=== PATIENT | female | born 1965 | race Caucasian/White ===

== ENCOUNTER 2022-11-03 19:21 | Emergency (ER) | payer MEDICAID ==
[~2022-11-03] VITALS: Ht 172.7 cm; Wt 65.0 kg
[~2022-11-03 19:21] MED LIST: ASA400T PO; LOPE-74 PO; NAPR-56 PO; NO HOME MEDS; ONDA8TAB6 PO
[2022-11-03] MEDS ORDERED: metoprolol succinate 25mg (24-HOUR) SR. Tablet PO ONE (19:55)
[2022-11-03] MEDS ORDERED: LORazepam 1 MG tablet PO ONE (19:55)
[2022-11-03] MEDS ORDERED: METO50TA7 PO (20:09)
[2022-11-03] MEDS ORDERED: CHLO25CA10 PO ×3 (20:09)
[2022-11-03 20:45] VITALS: BP 164/111
== END 2022-11-03 20:52 ==
LOC: ER 19:21
DX: H10.9 Unspecified conjunctivitis (principal); I10 Essential (primary) hypertension; F31.9 Bipolar disorder, unspecified
CPT/HCPCS: 99283

== ENCOUNTER 2025-05-26 12:45 | Emergency (ER) | payer MEDICAID ==
[~2025-05-26] VITALS: Ht 170.2 cm; Wt 82.0 kg
[~2025-05-26 12:45] MED LIST changes: +CHLO25CA10 PO
--- NOTE | 2025-05-26 13:04 | Physician Documentation ---
History of Present Illness General Chief Complaint: Abdominal Pain Stated Complaint: ABDOMINAL PAIN Time Seen by MD: 13:04 OK to notify your PCP?: No Primary Medical Doctor: none Source: patient, RN notes reviewed Mode of Arrival: EMS, Stretcher Exam Limitations: no limitations History of Present Illness Initial Comments 60 old female, who relapsed on alcohol one week ago and last drank 1 hour ago, presents complaining of crampy lower abdominal pain beginning three weeks ago. Pain is rated 5/10 at this time. She also reports urinary urgency for the last three weeks but denies any pain with urination. Finally she notes some subjective fevers and chills. Prior to drinking alcohol one week ago, patient was sober for three years. She denies any vomiting. Medication Reconciliation Allergies: Coded Allergies: No Known Allergies (Unverified , 05/26/25) Scheduled Amox Tr/Potassium Clavulanate 875/125 MG (Augmentin 875/125 MG), 1 TAB PO BID Chlordiazepoxide HCl (Chlordiazepoxide HCl), 2 CAP PO Q2H Chlordiazepoxide Hcl (Librium), 25 MG PO DIRECTED Mesalamine (Asacol), 3 TAB PO TID Naproxen (Naproxen), 500 MG PO Q12H Ondansetron HCl (Zofran), 8 MG PO Q8H PRN N/V Scheduled PRN Chlordiazepoxide Hcl (Librium), 50 MG PO Q6H PRN for agitation Loperamide Hcl (Imodium A-D), 2 MG PO Q12H FOR DIARRHEA PRN ONDANSETRON ODT 4mg tablet (Ondansetron Odt), 1 TABLET PO Q6H PRN for nausea/vomiting Miscellaneous Medications Home Med List (No Home Medications), (Reported) Past Medical History Past Medical History: Hypertension, *GI/HEPATOBILIARY*, Bipolar Past Surgical History: no surgical history Alcohol Use: Alcoholic Drug Use: none Lives with: Spouse Lives In: Home Occupation: employed Review of Systems All Other Systems at this time: Reviewed and Negative ROS lower abdominal pain as well as other positive symptoms as stated above in the HPI, otherwise all systems are reviewed and negative. Physical Exam Physical Exam Vital Signs: RN Vital Signs have been reviewed: Yes, Heart Rate: 99, Respiratory Rate: 22, BP: 112/69, Pulse Oximetry: 93, Weight: 82.000 Oxygen Flow Rate: 0 Pulse Oximetry Reflects: adequate oxygenation Physical Exam VITALS: Reviewed and as above. GENERAL: Alert, no apparent distress. HEENT: Normocephalic, atraumatic, PERRL, EOMI, dry mucosa RESPIRATORY: Lungs clear, normal breath sounds, no respiratory distress. CHEST: No accessory muscle use, no retractions CV: Regular rate, rhythm, no edema, no murmur, No: JVD GI: Slight suprapubic tenderness. Soft, bowels sounds present, no rebound, guarding, or rigidity MUSCULOSKELETAL: No deformities, no edema SKIN: Warm and dry, no rash NEURO: Oriented x4, No motor or sensory deficit PSYCH: Normal mood and affect, no agitation Progress Results/Orders Reviewed/noted all lab results: Yes Results/Orders Medications Received in ER Medications (Trade) Dose Ordered Sig/Briseyda Route PRN Reason Start Time Stop Time Status Last Admin Dose Admin (Toradol injection) 15 mg ONCE ONCE IM 05/26/25 15:35 05/26/25 15:36 DC 05/26/25 16:06 15 MG (Augmentin 875-125mg tablet) 1 tab ONCE ONCE PO 05/26/25 16:20 05/26/25 16:21 DC 05/26/25 16:56 1 TAB Vital Signs 05/26/25 05/26/25 05/26/25 05/26/25 12:50 12:59 13:00 13:58 Pulse 98 99 103 Resp 20 15 22 17 B/P (MAP) 124/94 112/69 (83) 111/66 (81) Pulse Ox 96 93 92 O2 Flow Rate 0 0 0 05/26/25 16:06 Resp 20 Laboratory Tests Test 05/26/25 13:11 05/26/25 13:50 White Blood Count 8.0 Red Blood Count 4.63 Hemoglobin 13.8 Hematocrit 40.5 Mean Corpuscular Volume 87.4 Mean Corpuscular Hemoglobin 29.8 Mean Corpuscular Hemoglobin Concent 34.1 Red Cell Distribution Width 13.2 Platelet Count 359 Mean Platelet Volume 7.3 L Neutrophils (%) (Auto) 65.7 Lymphocytes (%) (Auto) 28.5 Monocytes (%) (Auto) 4.2 Eosinophils (%) (Auto) 1.0 Basophils (%) (Auto) 0.6 Neutrophils # (Auto) 5.3 Lymphocytes # (Auto) 2.3 Monocytes # (Auto) 0.3 Eosinophils # (Auto) 0.1 Basophils # (Auto) 0.0 CBC Comment Sodium Level 138 Potassium Level 3.4 L Chloride Level 97 L Carbon Dioxide Level 22.8 L Anion Gap 18 H Blood Urea Nitrogen 15 Creatinine 0.68 Estimated GFR/1.73 m2 89 BUN/Creatinine Ratio 22.1 H Glucose Level 139 H Calcium Level 8.5 Total Bilirubin 0.4 Aspartate Amino Transf (AST/SGOT) 41 H Alanine Aminotransferase (ALT/SGPT) 30 Alkaline Phosphatase 124 H Total Protein 7.5 Albumin 3.7 Globulin 3.8 Albumin/Globulin Ratio 1.0 L Lipase 34 Procalcitonin < 0.05 Chemistry Comments Urine Specimen Description Cln catch midstream Urine Color Yellow Urine Clarity Cloudy Urine pH 6.5 Urine Specific [place] 1.020 Urine Protein 30 H Urine Glucose (UA) Negative Urine Ketones 15 H Urine Occult Blood Small Urine Nitrite Negative Urine Bilirubin Negative Urine Urobilinogen 0.2 Urine Leukocyte Esterase Trace H Urine RBC 10-20 Urine WBC 10-20 H Urine Squamous Epithelial Cells Many Urine Transitional Epithelial Cells Moderate Urine Amorphous Phosphates 3+ Urine Bacteria 4+ Urine Hyaline Casts Urine Mucus Few Urine Culture Indicated Rejected for culture Volume Urine Centrifuged 10 ml Urine HCG, Qualitative Negative Urine Comment EKG/XRAY/CT/US/VASC/MRI CT : Interpreted By: radiologist CT: abdomen/pelvis With Contrast?: No Impression Indication: abd pain Technique: CT axial images of the abdomen and pelvis are obtained without intravenous contrast. Coronal and sagittal reformats were obtained. Radiation Dose Information: CTDI volume is 19 mGy. Dose-length product is 988 mGy*cm Comparison: None FINDINGS: Limited evaluation without contrast. Lung bases demonstrate no pleural effusion. Adrenal glands, spleen, pancreas unremarkable in shape. Hepatic steatosis. Cholelithiasis. Kidneys demonstrate no hydronephrosis / nephrolithiasis. Small hiatal hernia. Distal esophageal wall thickening. Small bowel loops are normal in caliber. Colonic diverticular disease. Bowel wall thickening of the descending colon with surrounding stranding. There is less pronounced bowel wall thickening of the ascending colon, transverse colon. Normal appendix. Abdominal aortic atherosclerotic disease. Bladder distended. No free pelvic fluid. No inguinal lymphadenopathy. [id number] bilateral sacroiliac degenerative joint disease. L5 pars defects. 5 mm anterolisthesis L5 on S1. Thoracolumbar levocurvature. IMPRESSION: Colonic diverticular disease. Bowel wall thickening with surrounding stranding of the descending colon may represent diverticulitis, colitis. There is less pronounced bowel wall thickening of the ascending and transverse colon which could also represent sequela of colitis, inflammatory bowel disease. Hepatic steatosis. Small hiatal hernia. Distal esophageal wall thickening. Correlate for esophagitis and other etiologies. Recommend GI consultation. Cholelithiasis. Atherosclerotic disease. Other findings as described Reviewed by myself. Medical Decision Making Additional info obtained from: old records (seen in 2022 for general medical exam) Departure Time of Disposition: 17:22 Disposition: HOME / SELF CARE / HOMELESS Impression: Primary Impression: UTI (urinary tract infection) Qualified Codes: N39.0 - Urinary tract infection, site not specified Additional Impression: Colitis Condition: Stable Discharge Instructions: Colitis, Urinary Tract Infection, Adult, [id number] Additional Instructions: Take full course of antibiotics as prescribed. Take Zofran as needed for nausea. Follow up with your regular doctor. Return to the ER for worsening pain, fever, uncontrolled vomiting, or other concerns. Prescriptions ONDANSETRON ODT 4mg tablet (ONDANSETRON ODT) 4 Mg Tab.rapdis 1 TABLET PO Q6H PRN for nausea/vomiting, #12 TABLET Prov: QI TRAN MD 05/26/25 Amox Tr/Potassium Clavulanate 875/125 MG (Augmentin 875/125 MG) 875 Mg-125 Mg Tablet 1 TAB PO BID, #20 TAB Prov: QI TRAN MD 05/26/25 Education Educated: Patient Educated regarding: diagnosis, treatment, need for follow up Signature Scribe Signature: Scribed for Qi Tran MD by Maru Gilmore . 05/26/25 13:35 QI TRAN MD May 26, 2025 13:04 MARU GUERRA May 26, 2025 13:40
[2025-05-26 13:27] LABS: MEAN PLATELET VOLUME 7.3 FL (7.4-10.4); RED CELL DISTRIBUTION WIDTH 13.2 % (11.5-14.5)
[2025-05-26 13:42] LABS: CREATININE 0.68 MG/DL (0.40-0.90); TOTAL CARBON DIOXIDE 22.8 MMOL/L (24-32); eCRCL 88 ML/MIN; eGFR 89 ML/MIN
[2025-05-26 14:44] LABS: LEUKOCYTE ESTERASE ,URINE TRACE (Neg); NITRITES, URINE NEGATIVE (Neg); OCCULT BLOOD,URINE SMALL (Neg); URINE HCG NEGATIVE (NEG)
[2025-05-26 14:50] LABS: SQUAMOUS EPITHELIAL CELL,UR MANY /LPF (FEW); UA COLLECTION TYPE CLN CATCH MIDSTREAM
[2025-05-26 14:51] LABS: MUCUS STRANDS FEW /LPF (Neg)
[2025-05-26 14:53] LABS: AMORPHOUS PHOSPHATES 3+
[2025-05-26] MEDS: ketorolac trometh 15mg/ml vial 15 MG/ML ML IM ONE (16:06)
--- NOTE | 2025-05-26 16:49 | RADIOLOGY REPORT ---
Indication: abd pain Technique: CT axial images of the abdomen and pelvis are obtained without intravenous contrast. Kendrick nal and sagittal reformats were obtained. Radiation Dose Information: CTDI volume is 19 mGy. Dose-length product is 988 mGy*cm Comparison: None FINDINGS: Limited evaluation without contrast. Lung bases demonstrate no pleural effusion. Adrenal glands, spleen, pancreas unremarkable in shape. Hepatic steatosis. Cholelithiasis. Kidneys demonstrate no hydronephrosis / nephrolithiasis. Small hiatal hernia. Distal esophageal wall thickening. Small bowel loops are normal in caliber. Colonic diverticular disease. Bowel wall thickening of the descending colon with surrounding strandin g. There is less pronounced bowel wall thickening of the ascending colon, transverse colon. Normal appendix. Abdominal aortic atherosclerotic disease. Bladder distended. No free pelvic fluid. No inguinal lympha denopathy. [id number] bilateral sacroiliac degenerative joint disease. L5 pars defects. 5 mm anterolisthes is L5 on S1. Thoracolumbar levocurvature. IMPRESSION: Colonic diverticular disease. Bowel wall thickening with surrounding stranding of the descending col on may represent diverticulitis, colitis. There is less pronounced bowel wall thickening of the ascending and transverse colon which could also represent sequela of colitis, inflammatory bowel disease. Hepatic steatosis. Small hiatal hernia. Distal esophageal wall thickening. Correlate for esophagitis and other etiologies. Recommend GI con sultation. Cholelithiasis. Atherosclerotic disease. Other findings as described
[2025-05-26] MEDS: amox tr/potassium clavulanate 875/125mg TAB PO ONE ×2 (16:56→17:30)
[2025-05-26] MEDS ORDERED: ONDA-243 PO (17:22)
[2025-05-26] MEDS ORDERED: CHLO25CA10 PO (17:22)
[2025-05-26] MEDS ORDERED: AMOX-580 PO (17:22)
[2025-05-26] MEDS: ondansetron 4mg rapidly disintigrating tab PO ONE (17:30)
[2025-05-26 17:52] VITALS: BP 141/89; PULSE 102; RESP 18; O2SAT 96
== END 2025-05-26 17:59 | disposition home or self-care (01) ==
LOC: ER 12:46
DX: N39.0 Urinary tract infection, site not specified (principal); K52.9 Noninfective gastroenteritis and colitis, unspecified; F31.9 Bipolar disorder, unspecified; I10 Essential (primary) hypertension
CPT/HCPCS: 36415; 74176; 80053; 81001; 81025; 83690; 84145; 85025; 96372; 99285; J1885

== ENCOUNTER 2025-05-30 14:35 | Inpatient (IN) | payer MEDICAID ==
[~2025-05-30] VITALS: Ht 170.2 cm; Wt 82.0 kg
[~2025-05-30 14:35] MED LIST changes: +AMOX-580 PO; +ONDA-243 PO
[2025-05-30 15:02] LABS: MEAN PLATELET VOLUME 7.2 FL (7.4-10.4); RED CELL DISTRIBUTION WIDTH 13.2 % (11.5-14.5)
[2025-05-30 15:14] LABS: CREATININE 0.65 MG/DL (0.40-0.90); ETHANOL 288 MG/DL (<10); TOTAL CARBON DIOXIDE 28.4 MMOL/L (24-32); eCRCL 92 ML/MIN; eGFR > 90 ML/MIN
--- NOTE | 2025-05-30 15:31 | RADIOLOGY REPORT ---
DI HIP UNILATERAL 2 VIEWS, INDICATION: RIGHT HIP PAIN TECHNICAL DATA: Frontal and frog lateral views were obtained of the right hip. COMPARISON: None FINDINGS: The left hip is normally located. The left hip joint is normally maintained with no marginal osteophy eva. No left hip fracture is identified. The left sacroiliac joint appears normal. Dense material pr ojects over the right hemipelvis and is probable fecal material. IMPRESSION: Dense material projects over the right hemipelvis and is probable fecal material.
--- NOTE | 2025-05-30 15:36 | Physician Documentation ---
History of Present Illness General Chief Complaint: Mechanical Fall Stated Complaint: FALL Time Seen by MD: 15:15 OK to notify your PCP?: No Primary Medical Doctor: none Source: patient, EMS, RN notes reviewed Mode of Arrival: EMS Exam Limitations: no limitations History of Present Illness Initial Comments 60-year-old female, with recent relapse on alcohol, returns to the ED via EMS with primarily complains of right hip pain beginning two days ago after she fell. Patient reports she slipped at the time, falling onto her right hip. She also struck her head but did not lose consciousness. Pain improves when lying on her right side. She also complains of generalized abdominal pain and was seen by myself in this ED four days ago with the same complaint. She had labs , urinalysis, and CT of the abdomen/pelvis. She was discharged with prescriptions for Librium, Zofran, and Augmentin for urinary tract infection and colitis, and alcohol withdrawal. Patient reports she was unable to fill the prescription for antibiotics and abdominal pain has continued worsened. Medication Reconciliation Allergies: Coded Allergies: No Known Allergies (Unverified , 05/30/25) Miscellaneous Medications Home Med List (No Home Medications), (Reported) Discontinued Medications Amox Tr/Potassium Clavulanate 875/125 MG (Augmentin 875/125 MG), 1 TAB PO BID Discontinued Reason: patient no longer taking Chlordiazepoxide HCl (Chlordiazepoxide HCl), 2 CAP PO Q2H Discontinued Reason: patient no longer taking Chlordiazepoxide Hcl (Librium), 25 MG PO DIRECTED Discontinued Reason: patient no longer taking Chlordiazepoxide Hcl (Librium), 50 MG PO Q6H PRN for agitation Discontinued Reason: patient no longer taking Chlordiazepoxide Hcl (Librium), 25 MG PO UD PRN for for anxiety/agitation Discontinued Reason: patient no longer taking Home Med List (No Home Medications), (Reported) Discontinued Reason: patient no longer taking Loperamide Hcl (Imodium A-D), 2 MG PO Q12H FOR DIARRHEA PRN Discontinued Reason: patient no longer taking Mesalamine (Asacol), 3 TAB PO TID Discontinued Reason: patient no longer taking Naproxen (Naproxen), 500 MG PO Q12H Discontinued Reason: patient no longer taking ONDANSETRON ODT 4mg tablet (Ondansetron Odt), 1 TABLET PO Q6H PRN for naus ea/vomiting Discontinued Reason: patient no longer taking Ondansetron HCl (Zofran), 8 MG PO Q8H PRN N/V Discontinued Reason: patient no longer taking Past Medical History Past Medical History: Hypertension, *GI/HEPATOBILIARY*, Bipolar Past Surgical History: no surgical history Alcohol Use: Alcoholic Drug Use: none Lives with: Spouse Lives In: Home Occupation: employed Review of Systems All Other Systems at this time: Reviewed and Negative ROS As stated above in the HPI, otherwise all systems are reviewed and negative. Physical Exam Physical Exam Vital Signs: RN Vital Signs have been reviewed: Yes, Heart Rate: 87, Respiratory Rate: 15, BP: 114/91, Pulse Oximetry: 97, Weight: 82.000 Oxygen Flow Rate: 0 Pulse Oximetry Reflects: adequate oxygenation Physical Exam VITALS: Reviewed and as above. GENERAL: Alert, no apparent distress. HEENT: Normocephalic, atraumatic, PERRL, EOMI, dry mucosa RESPIRATORY: Lungs clear, normal breath sounds, no respiratory distress. CHEST: No accessory muscle use, no retractions CV: Regular rate, rhythm, no edema, no murmur, No: JVD GI: Soft, non-tender, bowels sounds present, no rebound, guarding, or rigidity MUSCULOSKELETAL No deformities, no edema SKIN: Warm and dry, no rash NEURO: Oriented x4, No motor or sensory deficit PSYCH: Normal mood and affect, no agitation Progress Progress Note 1800: Hospitalist paged. Results/Orders Reviewed/noted all lab results: Yes Results/Orders Orders - QI TRAN MD Hip Unilateral 2 Views (05/30/25 15:06) Completed Orders - QI TRAN MD Cbc/Diff (05/30/25 14:50) Lipase (05/30/25 14:50) Ethanol (05/30/25 14:50) CK (05/30/25 14:50) BMP (05/30/25 14:50) Hip Unilateral 2 Views (05/30/25 15:06) Potassium Cl Sr Tablet (K-Dur Tablet) (05/30/25 15:37) Ondansetron Inj. (Zofran 4mg/2ml Vial) (05/30/25 16:15) Potassium Cl Sr Tablet (K-Dur Tablet) (05/30/25 16:20) Potassium Cl Sr Tablet (K-Dur Tablet) (05/30/25 16:20) Magnesium Cl Er Tablet (Slow-Mag Tablet) (05/30/25 16:20) Magnesium Sulf-Water 2g/50ml (Magnesium (05/30/25 16:20) Magnesium Sulf-Water 4g/100ml (Magnesium (05/30/25 16:20) Potassium Cl 40meq/1/2ns 520ml ([place] (05/30/25 16:20) K And/Or Mag Replacement (K And/Or Mag R (05/30/25 20:00) MG (05/30/25 14:52) Ceftriaxone 2gm/D5w 50ml Bag (Rocephin 2 (05/30/25 16:35) Normal Saline 1000ml (0.9% Sodium Chlori (05/30/25 16:35) Metoclopramide Inj (Reglan Inj) (05/30/25 17:05) Diphenhydramine Inj (Benadryl Inj.) (05/30/25 17:05) Lorazepam Tablet (Ativan Tablet) (05/30/25 18:05) Vital Signs 05/30/25 05/30/25 05/30/25 05/30/25 14:39 15:35 16:07 18:17 Temp 97.8 97.8 Pulse 87 82 96 Resp 15 18 20 18 B/P (MAP) 114/91 143/93 (110) 160/80 (106) Pulse Ox 97 95 99 O2 Flow Rate 0 0 0 05/30/25 05/30/25 05/30/25 05/30/25 18:36 18:41 19:17 20:43 Pulse 85 93 Resp 18 18 18 18 B/P (MAP) 139/100 (113) 140/69 (92) Pulse Ox 97 96 Laboratory Tests Test 05/30/25 14:52 05/30/25 18:57 05/30/25 21:02 White Blood Count 7.4 Red Blood Count 4.58 Hemoglobin 13.6 Hematocrit 40.2 Mean Corpuscular Volume 87.8 Mean Corpuscular Hemoglobin 29.8 Mean Corpuscular Hemoglobin Concent 33.9 Red Cell Distribution Width 13.2 Platelet Count 255 Mean Platelet Volume 7.2 L Neutrophils (%) (Auto) 75.0 Lymphocytes (%) (Auto) 19.7 L Monocytes (%) (Auto) 4.1 Eosinophils (%) (Auto) 0.5 Basophils (%) (Auto) 0.7 Neutrophils # (Auto) 5.6 Lymphocytes # (Auto) 1.5 Monocytes # (Auto) 0.3 Eosinophils # (Auto) 0.0 Basophils # (Auto) 0.1 CBC Comment Sodium Level 139 Potassium Level 2.9 *L 3.5 Chloride Level 97 L Carbon Dioxide Level 28.4 Anion Gap 14 Blood Urea Nitrogen 7 Creatinine 0.65 Estimated GFR/1.73 m2 > 90 BUN/Creatinine Ratio 10.8 Glucose Level 151 H Calcium Level 8.4 L Magnesium Level 1.9 Total Creatine Kinase 170 Albumin 3.5 Lipase 29 Chemistry Comments Ethyl Alcohol Level 288 H Urine Specimen Description Cln catch midstream Urine Color Yellow Urine Clarity Clear Urine pH 7.0 Urine Specific [place] 1.010 Urine Protein Negative Urine Glucose (UA) Negative Urine Ketones Negative Urine Occult Blood Negative Urine Nitrite Negative Urine Bilirubin Negative Urine Urobilinogen 0.2 Urine Leukocyte Esterase Negative Urine Culture Indicated Not ind Volume Urine Centrifuged 10 ml Urine Comment Urine Opiates Screen Negative Urine Methadone Screen Negative Urine Fentanyl Screen Negative Urine Barbiturates Screen Negative Urine Phencyclidine Screen Negative Urine Amphetamines Screen Negative Urine Benzodiazepines Screen Negative Urine Cocaine Screen Negative Urine Cannabinoids Screen Negative Drug Screen Comment EKG/XRAY/CT/US/VASC/MRI Bone/Soft Tissue X-Ray (Ext.) : Additional Comment Addendum: 2 ADDENDUM # 1 The images are of the right hip. ORIGINAL REPORT DI HIP UNILATERAL 2 VIEWS, INDICATION: RIGHT HIP PAIN TECHNICAL DATA: Frontal and frog lateral views were obtained of the right hip. COMPARISON: None FINDINGS: The right hip is normally located. The right hip joint is normally maintained with no marginal osteophytes. No right hip fracture is identified. The right sacroiliac joint appears normal. Dense material projects over the right hemipelvis and is probable fecal material. IMPRESSION: Dense material projects over the right hemipelvis and is probable fecal material. Medical Decision Making Findings Facility Status: ED Holds, [facility] process The plan was discussed with the patient, who demonstrates clear understanding of the plan and is in agreement with the plan unless otherwise noted in the chart. All questions have been answered, all concerns were addressed unless otherwise documented. I was available throughout their ED stay for frequent reassessment and questions. Differential Diagnoses (considered and possible or likely): [With respect to abdominal pain, less likely represents ongoing UTI, otherwise Differential diagnosis considered includes acute appendicitis, acute cholecystitis, pancreatitis, gastritis, PUD, diverticulitis, mesenteric ischemia, abdominal ao rtic aneurysm, bowel obstruction, enteritis, colitis, fecal impaction, volvulus, IBS, inflammatory bowel disease, specific food intolerance, peritonitis, perforated viscous, malignancy, UTI, abscess, and abdominal pain NOS. Pelvic source of pain was also considered including endometritis, dysmenorrhea, ovarian cyst, ovarian torsion, PID, TOA, cervicitis, vaginitis, or uterine fibroid. History, physical exam, and workup exclude many of the more serious causes listed above. Additionally, have considerably dehydration, electrolyte derangement, hypoglycemia, alcohol withdrawal, alcohol intoxication With respect to fall, differential includes but not limited to right hip fracture versus contusion versus dislocation] ??Differential Diagnoses (considered and unlikely, not requiring evaluation currently): [See above] MDM Data Please see HPI for the following: Independent Historians and external Records Review. Historian: [Patient] Independent Historians: ?[Record review] Medication Management: [Reviewed medication list] Social History and determinants: [Reviewed] Please see the body of the note for the following: Any independent interpretations of ECG, imaging studies. All vitals signs/haemodynamics, ordered tests were independently reviewed and interpreted by myself. Nursing triage complaint and vitals reviewed, additional nursing notes were reviewed as available and I agree unless otherwise noted or documented in contradiction in the chart Vital Signs: Independently reviewed Labs: Independently interpreted Imaging: Independently interpreted Old Medical Records: Independently reviewed, see HPI for relevant summary and information Pulse Oximetry: [96%] interpreted as [normal on room air] by me [[employer] Analyst: [Regular Rate, Regular rhythm, no ectopy, NSR] reviewed and interpreted by me] Additionally notably showing: [Hemodynamics reviewed. The patient is not febrile, not tachycardic, no evidence of hypotension respiratory distress. CBC shows no leukocytosis. Metabolic panel shows hypokalemia. Elevated glucose. Lipase is normal. Ethanol is elevated 288, however the patient clinically is already and withdrawal. X-ray of the hip was obtained showing no acute fracture. ] Tests considered but not ordered include: [Advanced Imaging does not appear to be necessary] Social Determinants of Health Impact: Patient was evaluated in [facility], or [facility] [place] to healthcare due to below par ratio of patient to medical providers. [] Comorbid Conditions Impacting Present Evaluation and Care/Treatment: [Alcoholis m] Management Discussions with other Healthcare Providers: [Hospitalist regarding admission] Treatment and Disposition Medication Management (Given or considered): [Alcohol withdrawal management, potassium repletion]. See EMR for details Consideration for Hospitalization/Escalation/Deescalation of Care: Admission for observation has been considered, and appears to be necessary for further management of her alcohol withdrawal and repletion of electrolytes. ?ED Course:?[No clinical deterioration] ?Shared decision making:?[] Code status:?FULL Please see the full Electronic Medical Record for full details of nursing documentation, medications list, other records of complete past medical history and conditions, vital signs, laboratory studies, and any radiologic study interpretations by radiologists. Portions of this note were completed using [employer] dictation software and as a result there may exist minor errors in spelling. I have reviewed elements of past family and social history and agree as included in note. Departure Time of Disposition: 18:03 Disposition: 09 ADMITTED INPATIENT Admitted to Inpatient Unit: yes, to hospitalist Impression: Primary Impression: Right hip pain Additional Impressions: UTI (urinary tract infection) Qualified Codes: N39.0 - Urinary tract infection, site not specified Colitis Alcohol intoxication Qualified Codes: F10.929 - Alcohol use, unspecified with intoxication, unspecified Hypokalemia Fall Qualified Codes: W19.XXXA - Unspecified fall, initial encounter Alcohol withdrawal Condition: Fair Referrals: NO PRIMARY CARE PROVIDER (PCP) Additional Comment Additional Comment The patient was seen by me and prior visit and treated for colitis and UTI she is not obtain those antibiotics and continues to drink alcohol and presented with multiple complaints to include abdominal pain in his desire to stop drinking. The patient was clinically dehydrated she was treated in the emergency room with fluids and antibiotics. Case was signed out to for signed out to the hospitalist as the patient will be admitted. Prior hospitalizations have been reviewed the patient's monitoring coordinator was interpreted as sinus tachycardia and her pulse oximetry was interpreted as adequate and normal. Additionally the patient complained of hip pain there was no evidence of fracture on her x-ray. Signature Scribe Signature: Scribed for Qi Tran MD by Maru Gilmore . 05/30/25 16:21 No scribe for Suha Beltre Date: May 30, 2025 Time: 21:23 Attestation: The note accurately reflects work and decisions made by me.Qi Tran MD 06/03/25 12:25 This note accurately reflects clinical decisions, work performed by myself, Kee Beltre DO Date: May 30, 2025 Time: 21:23 QI TRAN MD May 30, 2025 15:36 MARU GUERRA May 30, 2025 16:28 KEE BELTRE DO May 30, 2025 21:19
[2025-05-30] MEDS ORDERED: magnesium Cl slow-release 64mg tablet PO PRN (16:20)
[2025-05-30] MEDS ORDERED: potassium Cl 20 mEq SR tablet PO PRN ×2 (16:20)
[2025-05-30] MEDS ORDERED: potassium Cl 40MEQ/1/2NS 520ml 520 ML IV PRN (16:20)
[2025-05-30] MEDS ORDERED: magnesium sulf-water 2g/50mL 50 ML IV PRN (16:20)
[2025-05-30] MEDS ORDERED: magnesium sulf-water 4G/100mL 100 ML IV PRN (16:20)
--- NOTE | 2025-05-30 16:21 | ELECTROCARDIOGRAPH REPORT ---
[facility] Test Date: 2025-05-30 Test Time: 14:38:58 Pat Name: KEIRY SOLOMON Department: EMERGENCY ROOM Room: Gender: F Honey Processor: HANSA : 1965 Requested By: DEPARTMENT EMERGENCY Order Number: [id number] Reading MD: Measurements Intervals [place] Rate: 87 P: 68 MS: 133 QRS: 28 QRSD: 93 T: 58 QT: 379 QTc: 456 Interpretive Statements Sinus rhythm Please click the below link to view image of tracing.
[2025-05-30] MEDS: ondansetron/PF 4mg/2ml inj IV ONE (16:25)
[2025-05-30] MEDS: potassium Cl 20 mEq SR tablet PO STA (16:27)
[2025-05-30] MEDS: CefTRIAXone 2gm/D5W 50ml BAG 50 ML IV ONE (16:57)
[2025-05-30] MEDS: normal saline 1000ML IV soln IVB ONE (16:57)
[2025-05-30] MEDS: metoclopramide 5 mg/ml inj IV ONE (17:04)
[2025-05-30] MEDS: K and/or MAG REPLACEMENT MC SCH (20:00)
[2025-05-30] MEDS: diazepam inj 5 MG/ML inj. IV PRN (21:36)
[2025-05-30] MEDS: thiamine 100mg/ml 2ml inj. IV STA (22:10)
[2025-05-30] MEDS: folic acid 1mg/0.2ml inj IV STA (22:11)
[2025-05-31] MEDS: ondansetron/PF 4mg/2ml inj IV PRN (00:29)
[2025-05-31] MEDS: normal saline 1000ml 1,000 ML IV SCH (00:46)
--- NOTE | 2025-05-31 05:56 | HISTORY AND PHYSICAL-Residence ---
History & Physical Providers to CC Resident Creating Document: OBDULIAJAMINAndreaYAZAN RES ~ History of Present Illness Primary Medical Doctor: none Reason for Admit\Complaint: alcohol withdrawal, uti History of Present Illness 60-year-old female with past medical history of ulcerative colitis, diverticulitis, alcohol use his come to the ED with complaints of pain abdomen, right hip pain, tremors. Patient has been sober for the last three years, but suddenly relapsed on alcohol. Since the last two weeks she has been drinking heavily, 2 big bottles of vodka, and not eating well. Last drink she had was in the morning. Patient reports that she started shaking and having tremors since the afternoon associated with nausea and vomiting ED. Patient was here in the ED one week ago for her UTI, was discharged on antibiotics, but not take them from the pharmacy, now complaining of abdominal pain, urgency. Two days ago she slipped on the floor and fell on her back, hit her head, but did not lose consciousness. Right now complaining of right hip pain. Allergies: Coded Allergies: No Known Allergies (Unverified , 05/30/25) Home Medications Home Medications Active Reported No Home Medications (Home Med List) Each Past Medical History Past Medical History Ulcerative colitis Diverticulitis Alcohol use disorder Depression Past Surgical History Surgical History Comment No known history Past Social History Social History Comment Patient has smoked for 30 years one pack per day, quit five years ago, currently vapes Alcohol-would drink under extreme stressful situations No illicit drug use Lives alone at home Currently Working Currently does not have a PCP Alcohol Use: Alcoholic Drug Use: None Lives with: Spouse Lives In: Home Occupation: employed ROS All Other Systems: Reviewed and Negative ROS Constitutional: Reports: no symptoms reported Eyes: Reports: no symptoms reported ENT: Reports: no symptoms reported Respiratory: Reports: No symptoms reported Cardiovascular: Reports: no symptoms reported Gastrointestinal: Reports: Nausea, vomiting Genitourinary: Reports: no symptoms reported Neurological: Reports: no symptoms reported Musculoskeletal: Reports: no symptoms reported Integumentary: Reports: no symptoms reported Allergic/Immunologic: Reports: no symptoms reported Hematologic/Lymphatic: Reports: no symptoms reported Endocrine: Reports: no symptoms reported Psychiatric: Reports: Sometimes feels depressed Exam Vitals: Vital Signs Date Time Temp Pulse Resp B/P (MAP) Pulse Ox O2 Delivery O2 Flow Rate FiO2 05/31/25 05:16 18 05/31/25 04:52 93 128/86 (100) 96 05/30/25 18:17 97.8 0 General: General: Alert, awake, oriented to time, person, place. Not in acute distress HEENT: Conjunctiva pink, Sclera clear, Mucus Membranes dry Neck: Supple without masses and tenderness. Resp: Normal vesicular breath sounds heard . No wheezing Heart: Regular Rate and rhythm, normal S1 and S2 without murmur, rub or gallop. Abdomen: Soft and no tenderness. no rigidity, no guarding,bowel sounds present, Extremities: peripheral pulses well felt Skin: Warm and Dry. Neurology-no focal neurological deficits Diagnostic Data Last Recorded Lab Results: 05/30/25 1452 05/30/252101 Advance Care Planning Advanced Care plannin - 30 Minutes (Full code) Additional Plan [id number]-old female came in with complaints of abdominal pain right hip pain and tremors. Patient experiencing alcohol withdrawal symptoms and UTI symptoms currently . Alcohol use disorder Alcohol withdrawal Vitals stable Lipase normal Toxicology positive for ethyl alcohol Patient on moderate alcohol withdrawal protocol- ativan , haldol prn thiamine, folic acid Substance use navigator consulted Librium 25 mg t.i.d. ordered. Continue to monitor her vitals Possible UTI- WBC-7.4 temperature- normal Urine analysis ordered. Follow-up Started ceftriaxone Ground level mechanical fall Patient complaining of right hip pain X-ray pelvis ordered. Follow-up. Hypokalemia- k-2.9 Patient on potassium replacement, levels back to normal. Code Status: Full code DVT prophylaxis: Heparin Analgesia/sedation: Morphine Line/tube: PIV GI prophylaxis: None Nutrition: regular Physical therapy: Yes Prognosis: Guarded Yazan Marquez PGY-1 I saw and discussed this pt with the resident team I agree with the assessment and plan as documented Date of Service: May 31, 2025 Billing Provider: NING BURGOS MD, PREETHI, RES May 31, 2025 05:56 NING BURGOS MD May 31, 2025 09:34
[2025-05-31 07:57] LABS: MEAN PLATELET VOLUME 7.6 FL (7.4-10.4); RED CELL DISTRIBUTION WIDTH 13.1 % (11.5-14.5)
[2025-05-31 08:14] LABS: INR 1.0 INR
[2025-05-31 08:25] LABS: CREATININE 0.61 MG/DL (0.40-0.90); PHOSPHORUS 3.1 MG/DL (2.3-4.5); TOTAL CARBON DIOXIDE 29.2 MMOL/L (24-32); eCRCL 98 ML/MIN; eGFR > 90 ML/MIN
[2025-05-31 10:23] LABS: LEUKOCYTE ESTERASE ,URINE NEGATIVE (Neg); NITRITES, URINE NEGATIVE (Neg); OCCULT BLOOD,URINE NEGATIVE (Neg)
[2025-05-31] MEDS: thiamine 100mg/ml 2ml inj. IV SCH (10:25)
[2025-05-31] MEDS: folic acid 1mg/0.2ml inj IV SCH (10:25)
[2025-05-31] MEDS: multivitamins, therapeutics tablet PO SCH (10:26)
[2025-05-31 10:27] LABS: UA COLLECTION TYPE CLN CATCH MIDSTREAM
--- NOTE | 2025-05-31 10:30 | PROGRESS NOTE ---
Daily Progress Note Providers to CC ~ Antibiotic Timeout Antibiotic Ordered?: Yes Subjective No acute events overnight. Patient examined at bedside. No new complaints, not in acute distress. A&Ox3 today. Patient denies chest pain, sob, palpitations, abdominal pain, n/v/d. Patient no longer reports abdominal pain. Vss, labs unremarkable. Objective Vital Signs Date Time Temp Pulse Resp B/P (MAP) Pulse Ox O2 Delivery O2 Flow Rate FiO2 05/31/25 06:44 92 16 145/95 (112) 93 0 05/30/25 18:17 97.8 Result Diagram: 05/31/2572305/31/25 0724 Physical Exam General: Generalized weakness, A&Ox 3, NAD HEENT: Normocephalic, PERRLA Neck: Supple, trachea midline, no JVD Chest: Clear to auscultation bilaterally Cardiovascular: RRR, S1&S2 GI: Soft and nontender Extremities: No cyanosis/clubbing/or edema RADIO REPORTER: CN II-XII intact, no focal deficits Musculoskeletal: No paraspinal muscle tenderness, no muscle spasm Skin: Warm and intact Coagulation Studies Laboratory Tests Test 05/31/25 07:24 Prothrombin Time 10.4 SECONDS (9.0-12.0) INR International Normalized Ratio 1.0 INR Coagulation Comments Problem\Assessment\Plan 60-year-old female came in with complaints of abdominal pain right hip pain and tremors. Patient experiencing alcohol withdrawal symptoms and dysuria. Assessment & Plan Alcohol intoxication Alcohol withdrawal Alcoholic hepatitis Chronic alcohol abuse Ground level mechanical fall Hypokalemia UTI- ruled out -xray negative fracture, lipase wnl, INR 1.0, AST/ALT elevated, wnl ALP, wnl t.bili, UA negative; Patient no longer reports abdominal pain -IVF, taper dose Librium, thiamine, folic acid, K/Mg replacement per protocol, substance use navigator/foster care social worker DVT/VTE Prophylaxis: heparin Code Status: Full Code Date of Service: May 31, 2025 Billing Provider: PHILOMENA NOONAN Common Visit Codes: [id number] INP/OBS CARE(HIGH) PHILOMENA NOONAN May 31, 2025 10:30
[2025-05-31 10:38] LABS: URINE AMPHETAMINE SCREEN NEGATIVE (Neg); URINE BARBITUATE SCREEN NEGATIVE (Neg); URINE BENZODIAZEPINES SCREEN NEGATIVE (Neg); URINE CANNABINOID SCREEN NEGATIVE (Neg); URINE COCAINE SCREEN NEGATIVE (Neg); URINE METHADONE SCREEN NEGATIVE (Neg); URINE OPIATE SCREEN NEGATIVE (Neg); URINE PHENCYCLIDINE SCREEN NEGATIVE (Neg)
[2025-05-31 12:20] VITALS: BP 135/92; PULSE 91; RESP 20; TEMP 98.2; O2SAT 97
[2025-05-31] MEDS ORDERED: CefTRIAXone/D5W-Rocephin 1gm 50 ML IV SCH (17:00)
[2025-05-31 18:30] VITALS: BP 148/86; PULSE 98; RESP 14; TEMP 98; O2SAT 100
[2025-05-31 20:00] VITALS: RESP 14; O2SAT 100
[2025-05-31] MEDS: heparin, porcine 5000 units/ml vial SQ SCH (20:58)
[2025-05-31 22:00] VITALS: BP 181/92; PULSE 98; RESP 16; TEMP 98.6; O2SAT 98
[2025-06-01 00:37] VITALS: RESP 16
--- NOTE | 2025-06-01 07:09 | DISCHARGE SUMMARY ---
Discharge Summary Providers to CC ~ Discharge Summary Admission Diagnosis: ALCOHOL WITHDRAWAL Hospital Course DATE OF ADMISSION: 05/31/25 DATE OF DISCHARGE: 06/01/25 Discharge Diagnosis\Comment: Alcohol intoxication Alcohol withdrawal Alcoholic hepatitis Chronic alcohol abuse Ground level mechanical fall Hypokalemia UTI- ruled out Left AMA Operations\Procedures: None Consultants: None Complications: Left AMA Condition on DC: Unstable Discharge Summary: Patient is not medically cleared for discharge. However, patient left AMA despite explaining risks associated with leaving AMA. *Problems/Diagnosis: (1) Alcohol intoxication Status: Acute Total Time Spent on D/C: Up to 30 Minutes Date of Service: Jun 01, 2025 Billing Provider: PHILOMENA NOONAN Common Visit Codes: NOT BILLABLE Problem Qualifiers (1) Alcohol intoxication: Qualified Codes: F10.929 - Alcohol use, unspecified with intoxication, unspecified PHILOMENA NOONAN Jun 01, 2025 07:09
== END 2025-06-01 01:16 | disposition left against medical advice (07) | DRG 249 ==
LOC: ER 14:36 → ED HOLD 21:25 → ORTHO 4S 05-31 12:10
PROVIDERS: ADMIT Internal Medicine; ATTEND Nurse Practitioner Family
DX: K52.9 Noninfective gastroenteritis and colitis, unspecified (principal); E87.6 Hypokalemia; F10.129 Alcohol abuse with intoxication, unspecified; F10.139 Alcohol abuse with withdrawal, unspecified; I10 Essential (primary) hypertension; M25.551 Pain in right hip; F31.9 Bipolar disorder, unspecified; K70.10 Alcoholic hepatitis without ascites; Z53.29 Procedure and treatment not carried out because of patient's decision for other reasons; Z79.899 Other long term (current) drug therapy; Y90.8 Blood alcohol level of 240 mg/100 ml or more
CPT/HCPCS: 36415; 73502; 80048; 80053; 80305; 80320; 81003; 82550; 82948; 83690; 83735; 84100; 84132; 85025; 85610; 87081; 93005; 96365; 96375; 99285; G0378; J0696; J1200; J1644; J2060; J2270; J2405; J2470; J2560; J2765; J3360; J3411; J3490; J7030

== ENCOUNTER 2025-06-12 19:09 | Emergency (ER) | payer MEDICAID ==
[~2025-06-12] VITALS: Ht 172.7 cm; Wt 80.0 kg
[~2025-06-12 19:09] MED LIST changes: -AMOX-580 PO; -ASA400T PO; -CHLO25CA10 PO; -LOPE-74 PO; -NAPR-56 PO; -ONDA-243 PO; -ONDA8TAB6 PO
[2025-06-12 19:22] VITALS: TEMP 98.4
--- NOTE | 2025-06-12 19:48 | Physician Documentation ---
History of Present Illness ~ Chief Complaint: Mechanical Fall Stated Complaint: FALL Time Seen by MD: 19:36 Primary Medical Doctor: none Mode of Arrival: EMS, Ambulatory HPI Patient presents to the emergency room brought in by EMS for apparent fall at home. Patient reports head strike. Multiple bottles of alcohol found around patient. She is a poor historian Tetanus within 5 Years?: No Medication Reconciliation Allergies: Coded Allergies: No Known Allergies (Unverified , 05/30/25) Miscellaneous Medications Home Med List (No Home Medications), (Reported) Past Medical History Past Medical History: Hypertension, *GI/HEPATOBILIARY*, Bipolar Past Surgical History: no surgical history Alcohol Use: Alcoholic Drug Use: none Lives with: Spouse Lives In: Home Occupation: employed Review of Systems ROS All review of systems negative except as per HPI Physical Exam Vital Signs: Temperature: 98.4, Source: Oral, Heart Rate: 87, Respiratory Rate: 19, BP: 139/88, Pulse Oximetry: 94, Weight: 80.000 Physical Exam General: Patient is awake, alert, oriented x4 in no acute distress. Appears highly intoxicated Head: Normocephalic and atraumatic. Eyes: Conjunctival normal. EOMI. PERRL. ENT: Mucous membranes moist. Neck: Supple, trachea is midline. Chest: Clear to auscultation bilaterally without rales, rhonchi, or wheezes. There is no accessory muscle use or retractions. Cardiac: RRR without murmurs, gallops, or rubs. Abd: Soft, nondistended, nontender, with normoactive bowel sounds. No guarding, rebound, or rigidity. Progress Results/Orders Results/Orders Orders - SYED SHEPPARD MD Ct Head (06/12/25 19:38) Accucheck (06/12/25 19:38) Chest,Single View (06/12/25 19:38) Monitor (06/12/25 19:38) Saline Lock (06/12/25 19:38) * Withdrawal Tx/Call If:* (06/12/25 20:36) Lorazepam Tablet (Ativan Tablet) (06/12/25 20:40) * Verify Ciwa Scoring* (06/12/25 20:36) Phenobarbital Inj (Phenobarbital Inj.) (06/12/25 20:40) Completed Orders - SYED SHEPPARD MD Ct Head (06/12/25 19:38) Electrocardiogram (06/12/25 19:38) Cbc/Diff (06/12/25 19:38) Chest,Single View (06/12/25 19:38) BMP (06/12/25 19:38) Hs Troponin I W Calculations (06/12/25 19:38) Normal Saline 1000ml (0.9% Sodium Chlori (06/12/25 19:40) Thiamine Inj. (Thiamine Inj.) (06/12/25 19:40) Ethanol (06/12/25 19:38) Drug Screen, Urine (06/12/25 19:38) CK (06/12/25 19:38) Potassium Cl Sr Tablet (K-Dur Tablet) (06/12/25 20:23) Ondansetron Inj. (Zofran 4mg/2ml Vial) (06/12/25 20:25) Ua W/Microscopic, Cult If Ind (06/12/25 20:20) Lorazepam Inj (Ativan Inj) (06/12/25 20:40) Lorazepam Inj (Ativan Inj) (06/12/25 20:40) Phenobarbital Inj (Phenobarbital Inj.) (06/12/25 20:40) Lorazepam Inj (Ativan Inj) (06/12/25 20:40) Olanzapine Im (Zyprexa I.M. Im On (06/12/25 21:20) Medications Received in ER Medications (Trade) Dose Ordered Sig/Briseyda Route PRN Reason Start Time Stop Time Status Last Admin Dose Admin Sodium Chloride 1,000 ml @ 1,000 mls/hr ONCE ONCE IV 06/12/25 19:40 06/12/25 20:39 DC 06/12/25 20:33 1,000 MLS/HR (thiamine inj.) 100 mg ONCE ONCE IV 06/12/25 19:40 06/12/25 19:41 DC 06/12/25 20:33 100 MG (Zofran 4mg/2ml vial) 4 mg ONCE ONCE IV 06/12/25 20:25 06/12/25 20:26 DC 06/12/25 20:33 4 MG (K-DUR tablet) 40 meq ONCE STAT PO 06/12/25 20:23 06/12/25 20:24 DC 06/12/25 20:34 40 MEQ (Ativan inj) 2 mg Q15M PRN IV RASS >1 06/12/25 20:40 06/12/25 21:35 DC 06/12/25 20:47 2 MG (ZyPREXA I.M. IM ONLY) 10 mg ONCE ONCE IM 06/12/25 21:20 06/12/25 21:21 DC 06/12/25 21:26 10 MG Vital Signs 06/12/25 06/12/25 06/12/25 06/12/25 19:17 19:18 19:22 20:47 Temp 98.4 Pulse 90 87 Resp 15 19 16 B/P (MAP) 139/88 (105) Pulse Ox 100 94 06/12/25 06/12/25 06/12/25 06/12/25 21:14 21:33 22:29 23:51 Pulse 88 94 88 Resp 16 16 16 B/P (MAP) 133/80 (97) 133/80 (97) 120/74 (89) 141/91 (108) Pulse Ox 94 94 95 O2 Flow Rate 0 0 06/13/25 00:49 Pulse 89 Resp 16 B/P (MAP) 121/75 (90) Pulse Ox 95 Laboratory Tests Test 06/12/25 19:46 06/12/25 20:20 White Blood Count 5.1 Red Blood Count 4.56 Hemoglobin 13.5 Hematocrit 41.8 Mean Corpuscular Volume 91.6 Mean Corpuscular Hemoglobin 29.6 Mean Corpuscular Hemoglobin Concent 32.3 L Red Cell Distribution Width 16.8 H Platelet Count 395 Mean Platelet Volume 7.1 L Neutrophils (%) (Auto) 55.7 Lymphocytes (%) (Auto) 35.2 Monocytes (%) (Auto) 7.0 Eosinophils (%) (Auto) 1.0 Basophils (%) (Auto) 1.1 H Neutrophils # (Auto) 2.9 Lymphocytes # (Auto) 1.8 Monocytes # (Auto) 0.4 Eosinophils # (Auto) 0.1 Basophils # (Auto) 0.1 CBC Comment Sodium Level 148 H Potassium Level 3.0 *L Chloride Level 105 Carbon Dioxide Level 30.2 Anion Gap 13 Blood Urea Nitrogen 9 Creatinine 0.70 Estimated GFR/1.73 m2 86 BUN/Creatinine Ratio 12.9 Glucose Level 122 H Calcium Level 7.9 L Total Creatine Kinase 158 Troponin I High Sensitivity 12 Albumin 3.0 L Chemistry Comments Ethyl Alcohol Level 290 H Urine Specimen Description Non-specified Urine Color Yellow Urine Clarity Cloudy Urine pH 8.0 Urine Specific [place] 1.015 Urine Protein Trace Urine Glucose (UA) Negative Urine Ketones Negative Urine Occult Blood Negative Urine Nitrite Negative Urine Bilirubin Negative Urine Urobilinogen 0.2 Urine Leukocyte Esterase Negative Urine RBC 0-2 Urine WBC 0-4 Urine Squamous Epithelial Cells Few Urine Triple Phosphate Crystals 2+ Urine Amorphous Phosphates 2+ Urine Bacteria 1+ Urine Mucus Few Urine Culture Indicated Not ind Volume Urine Centrifuged 10 ml Urine Comment Urine Opiates Screen Negative Urine Methadone Screen Negative Urine Fentanyl Screen Negative Urine Barbiturates Screen Negative Urine Phencyclidine Screen Negative Urine Amphetamines Screen Negative Urine Benzodiazepines Screen Positive Urine Cocaine Screen Negative Urine Cannabinoids Screen Negative Drug Screen Comment Medical Decision Making Findings Patient presents to the emergency room highly intoxicated. Report of head strike therefore CT scan was performed which was reassuring. All other labs reassuring for no major pathologic derangements. Noted hypokalemia and supplementation has been implemented. She has been monitored in the emergency room until achieving clinical sobriety and passed the road test. Departure Disposition: HOME / SELF CARE / HOMELESS Impression: Primary Impression: Alcohol intoxication Additional Impression: Hypokalemia Condition: Stable Discharge Instructions: Alcohol Abuse and Nutrition Additional Instructions: Considered decreasing your alcohol consumption and drinking responsibly Referrals: NO PRIMARY CARE PROVIDER (PCP) Prescriptions Potassium Chloride* (K-Dur*) 20 Meq Tab.prt.sr 1 TAB PO Q12H, #6 TAB Prov: SYED SHEPPARD MD 06/13/25 Signature Scribe Signature: No scribe Attestation: The note accurately reflects work and decisions made by me.Syed Sheppard MD 06/13/25 01:28 SYED SHEPPARD MD Jun 12, 2025 19:48
--- NOTE | 2025-06-12 19:49 | ELECTROCARDIOGRAPH REPORT ---
[facility] Test Date: 2025-06-12 Test Time: 19:45:32 Pat Name: KEIRY SOLOMON Department: [facility]-ER Patient ID: [facility]-[id number] Room: Gender: F Control Analyst: : 1965 Requested By: KERI SANDOVAL Order Number: [id number] Reading MD: Measurements Intervals [place] Rate: 81 P: 58 [place]: 150 QRS: 39 QRSD: 96 T: 58 QT: 398 QTc: 462 Interpretive Statements Sinus rhythm Please click the below link to view image of tracing.
[2025-06-12 19:52] LABS: MEAN PLATELET VOLUME 7.1 FL (7.4-10.4); RED CELL DISTRIBUTION WIDTH 16.8 % (11.5-14.5)
[2025-06-12 20:07] LABS: CREATININE 0.70 MG/DL (0.40-0.90); ETHANOL 290 MG/DL (<10); TOTAL CARBON DIOXIDE 30.2 MMOL/L (24-32); eCRCL 88 ML/MIN; eGFR 86 ML/MIN
--- NOTE | 2025-06-12 20:13 | RADIOLOGY REPORT ---
Exam: CT CT HEAD History: head strike Technique: [address] images through the posterior fossa and the supratentorial compartment were acquired without contrast and imaged using soft tissue and bone algorithms. RADIATION DOSE: DLP 1059.82 mGy.cm; CTDI vol 59.32 mGy. Comparison: None Findings: There is no evidence of an intracranial hemorrhage, acute large vessel infarct, mass effect, or midline shift. There is no significant cerebral atrophy. No significant calcification of the carotid siphons. The calvarium, orbits, paranasal sinuses, sella, middle ears, and mastoids are unremarkable. The superficial soft tissues are within normal limits. Impression: 1. No acute intracranial abnormality.
--- NOTE | 2025-06-12 20:24 | RADIOLOGY REPORT ---
CLINICAL HISTORY: Mental status change. TECHNIQUE: Single view of the chest was obtained. COMPARISON: None FINDINGS: The heart size and pulmonary vasculature are normal. There is mild right basilar linear atelectasis. IMPRESSION: NO ACUTE CARDIOPULMONARY PROCESS.
[2025-06-12 20:33] LABS: LEUKOCYTE ESTERASE ,URINE NEGATIVE (Neg); NITRITES, URINE NEGATIVE (Neg); OCCULT BLOOD,URINE NEGATIVE (Neg)
[2025-06-12] MEDS: normal saline 1000ml 1,000 ML IV ONE (20:33)
[2025-06-12] MEDS: thiamine 100mg/ml 2ml inj. IV ONE (20:33)
[2025-06-12] MEDS: ondansetron/PF 4mg/2ml inj IV ONE (20:33)
[2025-06-12] MEDS: potassium Cl 20 mEq SR tablet PO STA (20:34)
[2025-06-12 20:38] LABS: UA COLLECTION TYPE NON-SPECIFIED
[2025-06-12 20:42] LABS: MUCUS STRANDS FEW /LPF (Neg); SQUAMOUS EPITHELIAL CELL,UR FEW /LPF (FEW)
[2025-06-12 20:43] LABS: AMORPHOUS PHOSPHATES 2+; TRIPLE PHOSPHATE CRYST 2+ /HPF (NEGATIVE)
[2025-06-12] MEDS: OLANZapine **IM** 10 mg inj. IM ONE (21:26)
[2025-06-12 21:46] LABS: URINE AMPHETAMINE SCREEN NEGATIVE (Neg); URINE BARBITUATE SCREEN NEGATIVE (Neg); URINE BENZODIAZEPINES SCREEN POSITIVE (Neg); URINE CANNABINOID SCREEN NEGATIVE (Neg); URINE COCAINE SCREEN NEGATIVE (Neg); URINE METHADONE SCREEN NEGATIVE (Neg); URINE OPIATE SCREEN NEGATIVE (Neg); URINE PHENCYCLIDINE SCREEN NEGATIVE (Neg)
[2025-06-13] MEDS ORDERED: POTA-207 PO (01:28)
[2025-06-13 01:38] VITALS: BP 117/80; PULSE 72; RESP 16; O2SAT 95
== END 2025-06-13 01:40 | disposition home or self-care (01) ==
LOC: ER 19:12
DX: F10.129 Alcohol abuse with intoxication, unspecified (principal); F31.9 Bipolar disorder, unspecified; I10 Essential (primary) hypertension; E87.6 Hypokalemia; Y90.8 Blood alcohol level of 240 mg/100 ml or more; W18.30XA Fall on same level, unspecified, initial encounter; Y93.89 Activity, other specified; Y92.009 Unspecified place in unspecified non-institutional (private) residence as the place of occurrence of the external cause; Y99.8 Other external cause status
CPT/HCPCS: 36415; 70450; 71045; 80048; 80305; 80320; 81001; 82550; 84484; 85025; 93005; 96372; 96374; 96375; 99285; J2060; J2405; J3411; J3490; J7030; 96361

== ENCOUNTER 2025-06-17 22:24 | Emergency (ER) | payer MEDICAID ==
[~2025-06-17] VITALS: Ht 170.2 cm; Wt 81.8 kg
[~2025-06-17 22:24] MED LIST changes: +POTA-207 PO
[2025-06-17 22:42] VITALS: TEMP 99.2
[2025-06-17 22:55] LABS: MEAN PLATELET VOLUME 7.5 FL (7.4-10.4); RED CELL DISTRIBUTION WIDTH 18.5 % (11.5-14.5)
[2025-06-17] MEDS: normal saline 1000ml 1,000 ML IV ONE ×2 (22:55→23:59)
--- NOTE | 2025-06-17 22:56 | Physician Documentation ---
History of Present Illness ~ Chief Complaint: Abdominal Pain w/vomiting Stated Complaint: ABDOMINAL PAIN Time Seen by MD: 22:43 Primary Medical Doctor: none HPI Patient presents to the emergency room with epigastric pain. States it has been going on this past week. She states that she was diagnosed with diverticulitis and sent home with antibiotics and reports finishing the antibiotics for pain continues. She does continue drank alcohol last drink 8:00 a.m. this morning. She was seen two days ago at [facility] where CT of her abdomen was performed and was negative for diverticulitis Medication Reconciliation Allergies: Coded Allergies: No Known Allergies (Unverified , 06/17/25) Scheduled Potassium Chloride* (K-Dur*), 1 TAB PO Q12H Miscellaneous Medications Home Med List (No Home Medications), (Reported) Past Medical History Past Medical History: Hypertension, *GI/HEPATOBILIARY*, Bipolar Past Surgical History: no surgical history Alcohol Use: Alcoholic Drug Use: none Lives with: Spouse Lives In: Home Occupation: employed Review of Systems ROS All review of systems negative except as per HPI Physical Exam Vital Signs: Temperature: 99.2, Source: Oral, Heart Rate: 125, Respiratory Rate: 20, BP: 156/108, Pulse Oximetry: 96, Weight: 81.820 Physical Exam General: Patient is awake, alert, oriented x4 in mild distress Head: Normocephalic and atraumatic. Eyes: Conjunctival normal. EOMI. PERRL. ENT: Mucous membranes moist. Neck: Supple, trachea is midline. Chest: Clear to auscultation bilaterally without rales, rhonchi, or wheezes. There is no accessory muscle use or retractions. Cardiac: Tachycardic and regular without murmurs, gallops, or rubs. Abd: Soft, nondistended, epigastric tenderness to palpation Progress Results/Orders Results/Orders Orders - SYED SHEPPARD MD Urinalysis, Cult If Indicated (06/17/25 22:33) Straight Cath For Urine Sample (06/17/25 22:33) Ct Abdomen Pelvis (06/17/25 23:55) Completed Orders - SYED SHEPPARD MD Cbc/Diff (06/17/25 22:33) Lipase (06/17/25 22:33) CMP (06/17/25 22:33) Procalcitonin (06/17/25 22:44) Ethanol (06/17/25 22:42) Ct Abdomen Pelvis (06/17/25 23:55) Normal Saline 1000ml (0.9% Sodium Chlori (06/17/25 22:55) Ondansetron Inj. (Zofran 4mg/2ml Vial) (06/17/25 22:55) Morphine 4mg/Ml Inj. (Morphine Inj.) (06/17/25 22:55) Pantoprazole 40mg Iv (Protonix 40mg Iv) (06/17/25 22:55) Thiamine Inj. (Thiamine Inj.) (06/17/25 23:15) Normal Saline 1000ml (0.9% Sodium Chlori (06/17/25 23:20) Iohexol 300mg/Ml 100ml Inj. (Omnipaque-3 (06/17/25 23:18) Medications Received in ER Medications (Trade) Dose Ordered Sig/Briseyda Route PRN Reason Start Time Stop Time Status Last Admin Dose Admin Sodium Chloride 1,000 ml @ 1,000 mls/hr ONCE ONCE IV 06/17/25 22:55 06/17/25 23:54 DC 06/17/25 22:55 1,000 MLS/HR (Zofran 4mg/2ml vial) 4 mg ONCE ONCE IV 06/17/25 22:55 06/17/25 22:56 DC 06/17/25 23:54 4 MG (morphine inj.) 4 mg ONCE ONCE IV 06/17/25 22:55 06/17/25 22:56 DC 06/17/25 23:53 4 MG (Protonix 40mg IV) 80 mg ONCE ONCE IV 06/17/25 22:55 06/17/25 22:56 DC 06/17/25 23:53 80 MG (thiamine inj.) 100 mg ONCE ONCE IV 06/17/25 23:15 06/17/25 23:16 DC 06/17/25 23:54 100 MG Sodium Chloride 1,000 ml @ 1,000 mls/hr ONCE ONCE IV 06/17/25 23:20 06/18/25 00:19 DC 06/17/25 23:59 1,000 MLS/HR Vital Signs 06/17/25 06/17/25 06/17/25 22:42 23:15 23:15 Temp 99.2 Pulse 125 123 Resp 20 19 B/P (MAP) 156/108 153/97 (115) Pulse Ox 96 93 Laboratory Tests Test 06/17/25 22:42 White Blood Count 8.7 Red Blood Count 5.26 Hemoglobin 16.4 H Hematocrit 47.8 H Mean Corpuscular Volume 91.0 Mean Corpuscular Hemoglobin 31.2 H Mean Corpuscular Hemoglobin Concent 34.2 Red Cell Distribution Width 18.5 H Platelet Count 373 Mean Platelet Volume 7.5 Neutrophils (%) (Auto) 68.2 Lymphocytes (%) (Auto) 25.6 Monocytes (%) (Auto) 5.1 Eosinophils (%) (Auto) 0.1 Basophils (%) (Auto) 1.0 Neutrophils # (Auto) 6.0 Lymphocytes # (Auto) 2.2 Monocytes # (Auto) 0.4 Eosinophils # (Auto) 0.0 Basophils # (Auto) 0.1 CBC Comment Sodium Level 143 Potassium Level 3.6 Chloride Level 97 L Carbon Dioxide Level 22.7 L Anion Gap 23 H Blood Urea Nitrogen 12 Creatinine 0.83 Estimated GFR/1.73 m2 71 BUN/Creatinine Ratio 14.5 Glucose Level 132 H Calcium Level 8.7 Total Bilirubin 1.0 Aspartate Amino Transf (AST/SGOT) 413 H Alanine Aminotransferase (ALT/SGPT) 455 H Alkaline Phosphatase 184 H Total Protein 8.5 H Albumin 3.7 Globulin 4.8 H Albumin/Globulin Ratio 0.8 L Lipase 42 Procalcitonin < 0.05 Chemistry Comments Ethyl Alcohol Level 268 H Medical Decision Making Findings Patient presents to the emergency room vomiting that has per HPI. Differentials include but are not limited to intra-abdominal infection, viral syndrome, gastritis, electrolyte disturbances therefore emergent labs and imaging indicated. CT scan reassuring for no infectious process. Noticed salpingitis on imaging and given patient's alcohol level in past medical history do believe she is suffering from alcoholic gastritis. She is responding to therapy. She states she is going through alcohol withdrawal very badly however informed her that has a alcohol level was a proximally 250 and that she was not going through alcohol withdrawal. The need to cut back on alcohol discussed. I will not giving her pain medicine as I believe this will only unable her. I will provider of some nausea medicine. Departure Disposition: HOME / SELF CARE / HOMELESS Impression: Primary Impression: Alcoholic gastritis Condition: Fair Discharge Instructions: Alcohol Abuse and Dependence Information, Adult, Gastritis, Adult Additional Instructions: Your excessive alcohol intake has led to your vomiting. Referrals: NO PRIMARY CARE PROVIDER (PCP) Prescriptions Ondansetron 8mg ODT (Ondansetron Odt) 8 Mg Tab.rapdis 1 TAB PO Q6H for nausea/vomiting for 3 Days, #12 TAB 0 Refills Prov: SYED SHEPPARD MD 06/18/25 Signature Scribe Signature: No scribe Attestation: The note accurately reflects work and decisions made by me.Syed Sheppard MD 06/18/25 00:45 SYED SHEPPARD MD Jun 17, 2025 22:56
[2025-06-17 23:09] LABS: CREATININE 0.83 MG/DL (0.40-0.90); ETHANOL 268 MG/DL (<10); TOTAL CARBON DIOXIDE 22.7 MMOL/L (24-32); eCRCL 72 ML/MIN; eGFR 71 ML/MIN
[2025-06-17 23:15] VITALS: BP 153/97; PULSE 123; RESP 19; O2SAT 93
[2025-06-17] MEDS ORDERED: iohexol 300mg/ml 100ml inj. ONE (23:18)
[2025-06-17] MEDS: morphine 4 MG/ML inj SYRINge IV ONE (23:53)
[2025-06-17] MEDS: ondansetron/PF 4mg/2ml inj IV ONE (23:54)
[2025-06-17] MEDS: thiamine 100mg/ml 2ml inj. IV ONE (23:54)
--- NOTE | 2025-06-18 00:37 | RADIOLOGY REPORT ---
Exam: CT CT ABDOMEN PELVIS W/ IV CONTRAST History: abd pain COMPARISON: CT CT ABDOMEN PELVIS on DOS: 05/26/25 Technique: Multidetector spiral CT of the abdomen and pelvis was performed from lung bases to pubic symphysis. Intravenous contrast was administered during this examination. Portal venous imaging was obtained. Axial, coronal and sagittal multiplanar reformats were performed by the technologist on a separate workstation. Radiation Dose : 1. Abdomen/Pelvis: CTDIvol 17.59 mGy, DLP 891.46 mGy*cm. Findings: Lung Bases: No acute or significant lung base finding. Normal heart size. No pleural or pericardial effusion. Liver: Severe hepatosteatosis Gallbladder and biliary Tree: Unremarkable Spleen: Unremarkable Pancreas: The pancreas is normal in appearance without focal lesions or abnormal enhancement. Adrenal Glands: Unremarkable Kidneys: No hydronephrosis. Bladder: Unremarkable Bowel: Moderate to large volume of stool throughout the colon. Distal esophagus appears thickened. Ascites: Absent Lymphadenopathy: No mesenteric, retroperitoneal or periportal lymphadenopathy. Abdominal wall and Mesentery: Unremarkable. Vasculature: The visualized abdominal aorta is normal in size and caliber. Abdominal and pelvic vessels demonstrate normal enhancement. Pelvic Organs: Unremarkable Musculoskeletal: No aggressive focal bony lesions, acute fractures or dislocation. IMPRESSION: 1. No acute abdominal or pelvic finding. 2. Moderate to large volume of stool throughout the colon. 3. Severe hepatosteatosis. 4. Distal esophagus appears thickened, please correlate for esophagitis. Radiation optimization: All CT scans at this facility use at least one of these dose optimization techniques: automated exposure control mA and/or kV adjustment per patient size (includes targeted exams where dose is matched to clinical indication) or iterative reconstruction.
[2025-06-18] MEDS ORDERED: ONDA-245 PO (00:44)
[2025-06-18 00:51] LABS: LEUKOCYTE ESTERASE ,URINE NEGATIVE (Neg); NITRITES, URINE NEGATIVE (Neg); OCCULT BLOOD,URINE SMALL (Neg)
[2025-06-18 00:59] LABS: UA COLLECTION TYPE VOIDED
[2025-06-18 01:01] LABS: SQUAMOUS EPITHELIAL CELL,UR FEW /LPF (FEW)
[2025-06-18 01:02] LABS: RENAL CELLS, URINE FEW /HPF
== END 2025-06-18 00:52 | disposition home or self-care (01) ==
LOC: ER 22:25
DX: K29.20 Alcoholic gastritis without bleeding (principal); I10 Essential (primary) hypertension; F31.9 Bipolar disorder, unspecified; Z79.899 Other long term (current) drug therapy
CPT/HCPCS: 36415; 74177; 80053; 80320; 81001; 83690; 84145; 85025; 96361; 96374; 96375; 99285; J2270; J2405; J2470; J3411; J7030; Q9967

== ENCOUNTER 2025-06-18 06:20 | Inpatient (IN) | payer MEDICAID ==
[~2025-06-18] VITALS: Ht 172.7 cm; Wt 81.8 kg
[~2025-06-18 06:20] MED LIST changes: +ONDA-245 PO
--- NOTE | 2025-06-18 06:29 | Physician Documentation ---
History of Present Illness General Chief Complaint: Mental Health Eval Stated Complaint: ETOH M BLS Time Seen by MD: 06:25 Primary Medical Doctor: none History of Present Illness Initial Comments Patient presents to the emergency room with complaint of suicidal ideation, no definite plan. She was seen here yesterday with epigastric pain. States it has been going on this past week. She states that she was diagnosed with diverticulitis and sent home with antibiotics and reports finishing the antibiotics for pain continues. She does continue to drink alcohol, last drink 11:00 p.m. yesterday. She feels that she is beginning to go into withdrawal. She was seen two days ago at [facility] where CT of her abdomen was performed and was negative for diverticulitis. She lives by herself in [place]. Medication Reconciliation Allergies: Coded Allergies: No Known Allergies (Unverified , 06/18/25) Scheduled Ondansetron 8mg ODT (Ondansetron Odt), 1 TAB PO Q6H Potassium Chloride* (K-Dur*), 1 TAB PO Q12H Miscellaneous Medications Home Med List (No Home Medications), (Reported) Past Medical History Past Medical History: Hypertension, *GI/HEPATOBILIARY*, Bipolar Past Surgical History: no surgical history Alcohol Use: Alcoholic Drug Use: none Lives with: Spouse Lives In: Home Occupation: employed Review of Systems ROS Constitutional: Denies chills, fatigue, fever, weight gain or weight loss. HEENT: Denies hearing loss, sinus pressure or visual changes. Respiratory: Denies cough, shortness of breath or wheezing. Cardiovascular: Denies chest pain, pain while walking (claudication), edema or palpitations. Gastrointestinal: Epigastric pain, no nausea/vomiting/diarrhea Genitourinary: Denies painful urination (dysuria), excessive amount of urine (polyuria) or urinary frequency. Metabolic/Endocrine: Denies cold intolerance, heat intolerance, excessive thirst (polydipsia) or excessive hunger (polyphagia). Neurological: Beginning to feel anxious from alcohol withdrawal. Psychiatric: Denies anxiety or depression. Integumentary: Denies breast discharge, breast lump, hives, mole change(s), rash or skin lesion. Musculoskeletal: Denies back pain, joint pain, joint swelling or neck pain. Hematologic: Denies easily bleeding, easily bruises, lymphedema or issues with blood clots. Immunologic: Denies food allergies or seasonal allergies. Physical Exam Physical Exam Vital Signs: Temperature: 97.5, Source: Temporal, Heart Rate: 115, Respiratory Rate: 16, BP: 158/110, Pulse Oximetry: 99, Weight: 81.820 Oxygen Flow Rate: 0 Physical Exam Physical Exam Vitals and nursing note reviewed. Constitutional: General: Patient is awake, alert, oriented x 4 in no acute distress and well appearing. Speech is clear and lucid. Appearance: Normal appearance. Patient is not ill-appearing, toxic-appearing or diaphoretic. HENT: Head: Normocephalic and atraumatic. Mouth/Throat: Mouth: Mucous membranes are moist. Pharynx: Oropharynx is clear. Eyes: General: No scleral icterus. Extraocular Movements: Extraocular movements intact. Pupils: Pupils are equal, round, and reactive to light. Neck: Supple, no Kernig or Brudzinski sign. Cardiovascular: Rate and Rhythm: Normal rate and regular rhythm. Heart sounds: No murmur heard. Pulmonary: Effort: No respiratory distress. Breath sounds: No wheezing, rhonchi or rales. Abdominal: General: There is no distension. Palpations: There is no fluid wave, hepatomegaly or mass. Tenderness: There is no abdominal tenderness. There is no guarding. Musculoskeletal: General: No swelling or deformity. Skin: Coloration: Skin is not jaundiced. Findings: No erythema or rash. Neurological: Mental Status: Patient is alert. Progress Progress Note 8:20 a.m., 06/18/2025: CIWA score of 17. I am starting the patient on phenobarbital and will get her admitted for withdrawal. Results/Orders Results/Orders Orders - SANTO HIGGINS MD Urinalysis (06/18/25 06:55) Hcg, Ur Ql (06/18/25 06:55) Drug Screen, Urine (06/18/25 06:55) Med Rec (06/18/25 06:55) 1799.11 (06/18/25 06:55) Close Observation Level (06/18/25 06:55) Covid19 Binax Poc Result Entry (06/18/25 06:55) Substance Use Navigator (06/18/25 06:55) Regular Diet (06/18/25 Breakfast) Phenobarbital Inj (Phenobarbital Inj.) (06/18/25 08:22) Ct Head (06/18/25 08:38) Completed Orders - SANTO HIGGINS MD Ethanol (06/18/25 06:55) TSH (06/18/25 06:55) Lipase (06/18/25 06:55) MG (06/18/25 06:55) CMP (06/18/25 06:55) Pantoprazole 40mg Iv (Protonix 40mg Iv) (06/18/25 06:55) Normal Saline 1000ml (0.9% Sodium Chlori (06/18/25 06:55) Acetaminophen 325mg Tablet (Tylenol Tabl (06/18/25 08:25) Ct Head (06/18/25 08:38) Medications Received in ER Medications (Trade) Dose Ordered Sig/Briseyda Route PRN Reason Start Time Stop Time Status Last Admin Dose Admin (Protonix 40mg IV) 40 mg ONCE STAT IV 06/18/25 06:55 06/18/25 07:03 DC 06/18/25 08:02 40 MG Sodium Chloride 1,000 ml @ 1,000 mls/hr ONCE ONCE IV 06/18/25 06:55 06/18/25 07:54 DC 06/18/25 08:02 1,000 MLS/HR (Tylenol tablet) 650 mg ONCE ONCE PO 06/18/25 08:25 06/18/25 08:34 DC 06/18/25 08:41 650 MG Vital Signs 06/18/25 06/18/25 06:22 06:43 Temp 97.5 Pulse 115 Resp 16 16 B/P (MAP) 158/110 Pulse Ox 99 O2 Flow Rate 0 Laboratory Tests Test 06/18/25 07:17 06/18/25 07:58 CBC Comment Sodium Level 140 Potassium Level 3.7 Chloride Level 95 L Carbon Dioxide Level 22.2 L Anion Gap 23 H Blood Urea Nitrogen 11 Creatinine 0.72 Estimated GFR/1.73 m2 83 BUN/Creatinine Ratio 15.3 Glucose Level 116 H Calcium Level 8.5 Magnesium Level 2.2 Total Bilirubin 1.0 Aspartate Amino Transf (AST/SGOT) 345 H Alanine Aminotransferase (ALT/SGPT) 393 H Alkaline Phosphatase 170 H Total Protein 8.1 Albumin 3.6 Globulin 4.5 H Albumin/Globulin Ratio 0.8 L Lipase 38 Thyroid Stimulating Hormone (TSH) 2.39 Chemistry Comments Ethyl Alcohol Level 268 H White Blood Count 9.8 Red Blood Count 4.94 Hemoglobin 15.3 Hematocrit 45.0 Mean Corpuscular Volume 91.2 Mean Corpuscular Hemoglobin 31.0 Mean Corpuscular Hemoglobin Concent 34.0 Red Cell Distribution Width 18.6 H Platelet Count 346 Mean Platelet Volume 7.6 Neutrophils (%) (Auto) 68.2 Lymphocytes (%) (Auto) 26.1 Monocytes (%) (Auto) 4.3 Eosinophils (%) (Auto) 0.1 Basophils (%) (Auto) 1.3 H Neutrophils # (Auto) 6.7 Lymphocytes # (Auto) 2.6 Monocytes # (Auto) 0.4 Eosinophils # (Auto) 0.0 Basophils # (Auto) 0.1 Medical Decision Making Findings This 60-year-old female presents with suicidal ideation with no definite plan. She is also complaining of early alcohol withdrawal but she is somnolent when I leave her alone. She has ongoing epigastric pain and I am going to give her Protonix and fluids. Departure Disposition: ADMITTED INPATIENT Admission Level of Care: Neuro Impression: Primary Impression: Alcohol withdrawal Additional Impression: Suicidal ideation Condition: Stable Referrals: NO PRIMARY CARE PROVIDER (PCP) Signature Scribe Signature: . Attestation: . SANTO HIGGINS MD Jun 18, 2025 06:29
[2025-06-18 07:52] LABS: CREATININE 0.72 MG/DL (0.40-0.90); ETHANOL 268 MG/DL (<10); TOTAL CARBON DIOXIDE 22.2 MMOL/L (24-32); eCRCL 86 ML/MIN; eGFR 83 ML/MIN
[2025-06-18] MEDS: normal saline 1000ml 1,000 ML IV ONE (08:02)
[2025-06-18 08:20] LABS: MEAN PLATELET VOLUME 7.6 FL (7.4-10.4); RED CELL DISTRIBUTION WIDTH 18.6 % (11.5-14.5)
[2025-06-18] MEDS ORDERED: haloperidol lactate 5mg/ml inj IM PRN (08:40)
[2025-06-18] MEDS ORDERED: magnesium sulf-water 2g/50mL 50 ML IV PRN (08:40)
[2025-06-18] MEDS ORDERED: magnesium sulf-water 4G/100mL 100 ML IV PRN (08:40)
[2025-06-18] MEDS ORDERED: potassium Cl 20 mEq SR tablet PO PRN (08:40)
[2025-06-18] MEDS ORDERED: ondansetron/PF 4mg/2ml inj IV PRN (08:40)
[2025-06-18] MEDS ORDERED: dextrose 50%-water 50ml dispensing syringe IV PRN (08:40)
[2025-06-18] MEDS ORDERED: magnesium hydroxide 30ml (MOM) UD suspension PO PRN (08:40)
[2025-06-18] MEDS ORDERED: potassium Cl 40MEQ/1/2NS 520ml 520 ML IV PRN (08:40)
[2025-06-18] MEDS ORDERED: magnesium Cl slow-release 64mg tablet PO PRN (08:40)
[2025-06-18] MEDS ORDERED: bisacodyl 10mg suppository rectal RC PRN (08:40)
--- NOTE | 2025-06-18 08:50 | RADIOLOGY REPORT ---
CLINICAL HISTORY: Trauma TECHNIQUE: Helical scanning was performed of the head from the skull base to the vertex. Multiplanar reconstructions were performed. This exam was performed according to our departmental dose optimization program. Up-to-date CT equipment and radiation dose reduction techniques are utilized as appropriate. CTDI 55.6 DLP 991 COMPARISON: CT CT HEAD on DOS: 06/12/25 FINDINGS: There is no evidence for acute intracranial hemorrhage, acute ischemic changes, mass, mass effect, or extra-axial fluid collection. There is no hydrocephalus or midline shift. There is no effacement of the cerebral sulci and basal subarachnoid cisterns. The medina-white matter differentiation is well maintained. The imaged paranasal sinuses are clear. IMPRESSION: NO ACUTE INTRACRANIAL ABNORMALITY SEEN.
[2025-06-18 09:10] LABS: PHOSPHORUS 3.6 MG/DL (2.3-4.5)
[2025-06-18] MEDS: normal saline 1000ml 1,000 ML IV SCH (09:21)
[2025-06-18 11:06] LABS: URINE HCG NEGATIVE (NEG)
[2025-06-18 11:22] LABS: LEUKOCYTE ESTERASE ,URINE NEGATIVE (Neg); NITRITES, URINE NEGATIVE (Neg); OCCULT BLOOD,URINE TRACE-INTACT (Neg); URINE AMPHETAMINE SCREEN NEGATIVE (Neg); URINE BARBITUATE SCREEN NEGATIVE (Neg); URINE BENZODIAZEPINES SCREEN POSITIVE (Neg); URINE CANNABINOID SCREEN NEGATIVE (Neg); URINE COCAINE SCREEN NEGATIVE (Neg); URINE METHADONE SCREEN NEGATIVE (Neg); URINE OPIATE SCREEN POSITIVE (Neg); URINE PHENCYCLIDINE SCREEN NEGATIVE (Neg)
[2025-06-18 11:32] LABS: UA COLLECTION TYPE CLN CATCH MIDSTREAM
[2025-06-18 11:35] LABS: TRIPLE PHOSPHATE CRYST 4+ /HPF (NEGATIVE)
[2025-06-18 11:36] LABS: SQUAMOUS EPITHELIAL CELL,UR FEW /LPF (FEW)
[2025-06-18 11:37] LABS: AMORPHOUS PHOSPHATES 1+
[2025-06-18] MEDS: thiamine 100mg/ml 2ml inj. IV SCH (13:23)
[2025-06-18 19:06] VITALS: BP 168/104; PULSE 103; RESP 18; TEMP 98.1; O2SAT 99
[2025-06-18] MEDS: heparin, porcine 5000 units/ml vial SQ SCH (19:49)
[2025-06-18 20:00] VITALS: RESP 18; O2SAT 99
--- NOTE | 2025-06-18 20:53 | HISTORY AND PHYSICAL ---
History & Physical Providers to CC ~ History of Present Illness Reason for Admit\Complaint: Drinking vodka History of Present Illness 60-year-old female with past medical history of ulcerative colitis, diverticulitis, alcohol use his come to the ED with complaints of pain abdomen, right hip pain, tremors. Patient has been sober for the last three and a half years, but suddenly relapsed on alcohol. Since the last two weeks she has been drinking heavily, 2 big bottles of vodka, and not eating well. Feeling depressed , feels that she is alone all the time. She has bipolar disorder for which she contacted [facility][1] but currently does not have any PCP. Allergies: Coded Allergies: No Known Allergies (Unverified , 06/18/25) Home Medications Home Medications Active Ondansetron Odt (Ondansetron HCl) 8 Mg Tab.rapdis 1 Tab PO Q6H 3 Days K-Dur* (Potassium Chloride) 20 Meq Tab.prt.sr 1 Tab PO Q12H Reported No Home Medications (Home Med List) Each Past Medical History Past Medical History Ulcerative colitis Diverticulitis Alcohol use disorder Depression Past Social History Social History Comment Patient has smoked for 30 years one pack per day, quit five years ago, currently vapes Alcohol-would drink under extreme stressful situations No illicit drug use Lives alone at home Currently Working Currently does not have a PCP She mentioned that her mother lives in [facility] for six month but then rest of the six months she goes to [place]. She works in [employer] She also vapes now nicotine cigarettes denies use of any drugs. Able to ambulate. ROS ROS Review of system as mentioned above in HPI rest of the review of system unremarkable Exam Vitals: Vital Signs Date Time Temp Pulse Resp B/P (MAP) Pulse Ox O2 Delivery O2 Flow Rate FiO2 06/18/25 19:50 12 06/18/25 16:04 108 165/93 (117) 97 0 06/18/25 06:22 97.5 General: General-patient not in any acute distress, alert awake chronically ill- appearing HEENT-atraumatic normocephalic, neck supple without elevated JVD, no thyromegaly or carotid bruit. No lymphadenopathy bilaterally. Eyes-no icterus or pallor seen in eyes Chest-clear to auscultation bilaterally, breathing nonlabored no tachypnea, no wheezing, no crepitation, no crackles. Heart-S1-S2 normal, regular heart rate no murmur Abdomen bowel sounds positive on auscultation, soft nondistended , signs of discomfort present on palpation over upper abdomen and left lower abdomen . no guarding, no rigidity Skin no active skin rash Neurology-grossly intact, nonfocal alert awake oriented Extremity- no pedal edema able to move all 4 extremities Psychiatry - patient is not confused or agitated cooperated during physical examination Diagnostic Data Last Recorded Lab Results: 06/18/25 0758 06/18/25 0717 Additional Plan [id number]-old female came in with complaints of suicidal ideation, depression, relapse on alcohol again Alcohol use disorder Alcohol withdrawal Vitals stable Lipase normal Toxicology positive for ethyl alcohol Patient started on alcohol withdrawal protocol- ativan , haldol prn thiamine, folic acid Substance use navigator consulted Continue to monitor her vitals [place] [address], sitter ordered DVT prophylaxis: Heparin Analgesia/sedation: Morphine Line/tube: PIV GI prophylaxis: None Nutrition: regular Physical therapy: Yes We will continue to monitor patient's labs and vitals closely . Needs physical therapy evaluation before discharge . Code status discussed with the patient patient wishes full code Time spent in discussing code status 16 minutes. We will do home medication reconciliation once updated in electronic by nursing staff or pharmacist. Further management depending on response to treatment and I will continue to follow patient in a.m. Date of Service: Jun 18, 2025 Billing Provider: TREVIN STERLING MD Common Visit Codes: 27799-[id number] INP/OBS CARE (HIGH) Secondary Visit Codes: 13055-[id number] CARE PLAN 30 MINUTES TREVIN STERLING MD Jun 18, 2025 20:53
[2025-06-18] MEDS: diazepam inj 5 MG/ML inj. IV PRN (21:55)
[2025-06-18 22:00] VITALS: BP 174/98; PULSE 98; RESP 15; TEMP 97.8; O2SAT 98
[2025-06-18 23:35] VITALS: BP_SYST 155; BP_DIAS 45; BP_DIAS 89
[2025-06-19 05:31] LABS: MEAN PLATELET VOLUME 7.8 FL (7.4-10.4); RED CELL DISTRIBUTION WIDTH 17.6 % (11.5-14.5)
[2025-06-19 05:51] LABS: CREATININE 0.59 MG/DL (0.40-0.90); TOTAL CARBON DIOXIDE 26.9 MMOL/L (24-32); eCRCL 105 ML/MIN; eGFR > 90 ML/MIN
[2025-06-19 06:00] VITALS: BP 159/95; PULSE 87; RESP 16; TEMP 97.7; O2SAT 98
[2025-06-19] MEDS: potassium Cl 20 mEq SR tablet PO PRN (08:05)
[2025-06-19] MEDS: multivitamins, therapeutics tablet PO SCH (08:05)
[2025-06-19] MEDS: folic acid 1mg/0.2ml inj IV SCH (08:07)
[2025-06-19 18:00] VITALS: BP 125/77; PULSE 96; RESP 18; TEMP 97.4; O2SAT 96
--- NOTE | 2025-06-19 18:47 | PROGRESS NOTE ---
Daily Progress Note Providers to CC ~ Antibiotic Timeout Antibiotic Ordered?: No Subjective Patient was seen in her room she is feeling better as per nursing staff she wants to take care of her pet , feeling hungry Objective Vital Signs Date Time Temp Pulse Resp B/P (MAP) Pulse Ox O2 Delivery O2 Flow Rate FiO2 06/19/25 13:50 13 06/19/25 08:15 Room Air 0.0 06/19/25 08:04 87 06/19/25 06:00 97.7 159/95 (116) 98 Result Diagram: 06/19/25 0512 06/19/25 0512 General-patient not in any acute distress, alert awake chronically ill- appearing HEENT-atraumatic normocephalic, neck supple without elevated JVD, no thyromegaly or carotid bruit. No lymphadenopathy bilaterally. Eyes-no icterus or pallor seen in eyes Chest-clear to auscultation bilaterally, breathing nonlabored no tachypnea, no wheezing, no crepitation, no crackles. Heart-S1-S2 normal, regular heart rate no murmur Abdomen bowel sounds positive on auscultation, soft nondistended , no signs of discomfort present on palpation over upper abdomen and left lower abdomen . no guarding, no rigidity Skin no active skin rash Neurology-grossly intact, nonfocal alert awake oriented Extremity- no pedal edema able to move all 4 extremities Psychiatry - patient is not confused or agitated cooperated during physical examination Problem\Assessment\Plan 60-year-old female came in with complaints of suicidal ideation, depression, relapse on alcohol again Alcohol use disorder Alcohol withdrawal Vitals stable Lipase normal Toxicology positive for ethyl alcohol Patient started on alcohol withdrawal protocol- ativan , haldol prn thiamine, folic acid Substance use navigator consulted Continue to monitor her vitals Mild hypokalemia we will do the replacement as per protocol [place] [address], sitter ordered. PATIENT IS MEDICALLY CLEAR FOR MENTAL HEALTH EVALUATION FROM [facility] DVT prophylaxis: Heparin Analgesia/sedation: Morphine Line/tube: PIV GI prophylaxis: None Nutrition: regular Physical therapy: Yes Code status discussed with the patient patient wishes full code. We will continue to monitor patient's labs and vitals closely . Needs physical therapy evaluation before discharge . We will do home medication reconciliation once updated in electronic by nursing staff or pharmacist. Further management depending on response to treatment and I will continue to follow patient in a.m. Date of Service: Jun 19, 2025 Billing Provider: TREVIN STERLING MD Common Visit Codes: [id number] INP/OBS CARE(HIGH) TREVIN STERLING MD Jun 19, 2025 18:47
[2025-06-19] MEDS: HYDROcodone/acetaminophen 5mg/325mg tablet PO PRN (20:42)
[2025-06-19 22:00] VITALS: BP 135/85; PULSE 80; RESP 16; TEMP 97.9; O2SAT 96
[2025-06-20] MEDS: morphine 4 MG/ML inj SYRINge IV PRN (00:18)
[2025-06-20] MEDS: ibuprofen tablet 400 MG TABLET PO ONE (04:47)
[2025-06-20 06:00] VITALS: BP 149/95; PULSE 89; RESP 15; TEMP 97.8; O2SAT 98
[2025-06-20 06:17] LABS: MEAN PLATELET VOLUME 8.7 FL (7.4-10.4); RED CELL DISTRIBUTION WIDTH 18.4 % (11.5-14.5)
[2025-06-20 06:21] LABS: CREATININE 0.68 MG/DL (0.40-0.90); TOTAL CARBON DIOXIDE 25.6 MMOL/L (24-32); eCRCL 91 ML/MIN; eGFR 89 ML/MIN
[2025-06-20 10:00] VITALS: BP 156/90; PULSE 85; RESP 16; TEMP 98.1; O2SAT 95
[2025-06-20] MEDS: nicotine 21mg patch - 24 hr TD SCH (12:01)
--- NOTE | 2025-06-20 16:59 | DISCHARGE SUMMARY ---
Discharge Summary Providers to CC ~ Discharge Summary Admission Diagnosis: alcohol withdrawal, suicidal ideation, abnormal LFT Hospital Course DATE OF ADMISSION: 06/18/2025 DATE OF DISCHARGE: 06/20/2025 Discharge Diagnosis\\Comment: Alcohol use disorder, mild hypokalemia, suicidal ideation Operations\\Procedures: None Consultants: [facility] Complications: None Condition on DC: Stable for transfer Continued Medications: Home Med List (No Home Medications) Each Discontinued Medications: Ondansetron 8mg ODT (Ondansetron Odt) 8 Mg Tab.rapdis 1 TAB PO Q6H for nausea/vomiting for 3 Days, #12 TAB 0 Refills Potassium Chloride* (K-Dur*) 20 Meq Tab.prt.sr 1 TAB PO Q12H, #6 TAB Discharge Summary: Patient was admitted by Dr. Shasha Tang with the following HPI:"60-year-old female with past medical history of ulcerative colitis, diverticulitis, alcohol use his come to the ED with complaints of pain abdomen, right hip pain, tremors. Patient has been sober for the last three and a half years, but suddenly relapsed on alcohol. Since the last two weeks she has been drinking heavily, 2 big bottles of vodka, and not eating well. Feeling depressed , feels that she is alone all the time. She has bipolar disorder for which she contacted [facility] but currently does not have any PCP."The patient did have hypokalemia and serum potassium was 3.3 and was on the potassium replacement protocol serum potassium normalized the following morning to 3.8. The patient had no signs of alcohol withdrawal during hospitalization. The patient is medically cleared to be evaluated by [facility] on the and was evaluated in the morning of the by [facility] and made a 5150 the patient has been accepted to [facility] and anticipate being discharged in transferred to [facility] at 1930 this evening. Gen. No acute distress alert and oriented Lungs clear to ascultation bilaterally, no wheezes rales or rhonchi appreciated Heart normal sinus rhythm no murmurs rubs or clicks noted Abdomen soft nontender bowel sounds are normoactive Lower extremities no clubbing cyanosis, nor edema appreciated bilaterally The patient is seen and evaluated on the day of discharge 06/20/2025. 20 minutes was spent on discharging the patient. *Problems/Diagnosis: (1) Suicidal ideation Status: Acute Total Time Spent on D/C: Up to 30 Minutes Date of Service: Jun 20, 2025 Billing Provider: SILVIA ALDANA DO Common Visit Codes: 29002-BRC/OBS DISCH DAY <30MIN SILVIA ALDANA DO Jun 20, 2025 16:58
[2025-06-20 19:14] VITALS: RESP 16
== END 2025-06-20 19:50 | DRG 425 ==
LOC: ER 06:21 → ED HOLD 08:44 → ORTHO 4S 19:03
PROVIDERS: ADMIT Internal Medicine; ATTEND Internal Medicine
DX: E87.6 Hypokalemia (principal); R45.851 Suicidal ideations; Y90.9 Presence of alcohol in blood, level not specified; I10 Essential (primary) hypertension; F31.9 Bipolar disorder, unspecified; F10.139 Alcohol abuse with withdrawal, unspecified; M25.551 Pain in right hip; Z79.899 Other long term (current) drug therapy; Z87.891 Personal history of nicotine dependence
CPT/HCPCS: 36415; 70450; 80053; 80305; 80320; 81001; 81025; 82948; 83690; 83735; 84100; 84443; 85025; 87081; 87811; 96365; 96372; 96375; 99285; G0378; J1644; J2270; J2470; J2560; J3360; J3411; J3490; J7030